=== PATIENT | female | born 1950 | race Caucasian/White ===

== ENCOUNTER → 2019-09-04 | Outpatient (REF) | payer MEDICARE | LOC: M LAB REF 17:46 | PROVIDERS: ATTEND Dermatology | DX: R22.0 Localized swelling, mass and lump, head (principal) | CPT/HCPCS: 87070; 87077; 87186; 87252; G0463 ==

== ENCOUNTER → 2019-09-17 | Outpatient (CLI) | payer MEDICARE ==
[2019-09-17 14:28] LABS: BASO % 0.6 % (0.0-1.0); EOS # 0.1 10^3/uL (0.0-0.5); EOS % 1.3 % (0.0-3.0); HEMATOCRIT 43.6 % (36.0-47.0); HEMOGLOBIN 14.3 g/dl (12.0-15.5); LYMPH # 1.8 10^3/uL (1.5-5.0); MEAN CORPUSCULAR HEMOGLOBIN 30.9 pg (27.0-33.0); MEAN CORPUSCULAR HGB CONC 32.8 g/dl (32.0-36.5); MEAN CORPUSCULAR VOLUME 94.2 fl (80.0-96.0); MONO # 0.5 10^3/uL (0.0-0.8); MONO % 8.7 % (0.0-5.0); NEUTROPHILS # 2.9 10^3/uL (1.5-8.5); PLATELET COUNT, AUTOMATED 335 10^3/uL (150-450); RED BLOOD COUNT 4.63 10^6/uL (4.00-5.40); WHITE BLOOD COUNT 5.3 10^3/uL (4.0-10.0)
[2019-09-17 14:44] LABS: FREE T4 0.95 NG/DL (0.76-1.46); THYROID STIMULATING HORMONE 1.78 uIU/ML (0.358-3.740)
[2019-09-17 15:28] LABS: ERYTHROCYTE SEDIMENTATION RATE 2 mm/hr (0-30)
== END ==
LOC: M WUC 11:27
PROVIDERS: ATTEND Dermatology
DX: R53.83 Other fatigue (principal)

== ENCOUNTER → 2019-09-28 | Outpatient (CLI) | payer MEDICARE ==
[2019-09-28 17:56] LABS: ALBUMIN 4.2 GM/DL (3.2-5.2); ALT/SGPT 26 U/L (12-78); BILIRUBIN,TOTAL 0.4 MG/DL (0.2-1.0); BLOOD UREA NITROGEN 15 MG/DL (7-18); CALCIUM LEVEL 9.2 MG/DL (8.8-10.2); CARBON DIOXIDE LEVEL 27 MEQ/L (21-32); CHLORIDE LEVEL 104 MEQ/L (98-107); COMPLEMENT C4 20 MG/DL (10-40); CREATININE FOR GFR 0.76 MG/DL (0.55-1.30); GLOMERULAR FILTRATION RATE > 60.0 (>45); GLUCOSE, FASTING 86 MG/DL (70-100); POTASSIUM SERUM 3.9 MEQ/L (3.5-5.1); SODIUM LEVEL 139 MEQ/L (136-145); TOTAL PROTEIN 6.7 GM/DL (6.4-8.2)
[2019-10-03 09:08] LABS: ANTINUCLEAR ANTIBODIES DIRECT Negative (Negative); Lyme Disease IgG/IgM Antibodie <0.91 ISR (0.00-0.90); Lyme Disease IgM Ab Quantitati <0.80 index (0.00-0.79)
== END ==
LOC: M WUC 12:04
PROVIDERS: ATTEND Dermatology
DX: L90.5 Scar conditions and fibrosis of skin (principal)

== ENCOUNTER → 2019-11-13 | Outpatient (CLI) | payer MEDICARE ==
--- NOTE | 2019-11-20 17:00 | REP ---
RIGHT ANKLE SERIES: 4-VIEWS HISTORY: Injury in a fall. FINDINGS: Four views of the right ankle demonstrate intact ankle mortise. No fracture or subluxation is seen. Achilles and plantar calcaneal spurring is noted. IMPRESSION: No fracture noted. MTDD
--- NOTE | 2019-11-20 17:02 | REP ---
BILATERAL FOOT SERIES: 8-VIEWS HISTORY: Injury in a fall. Bilateral foot pain. The patient was unable to remove a metallic ring from the second digit of the left foot. FINDINGS: Left foot radiographs demonstrate an intraarticular nondisplaced fracture of the distal aspect of the proximal phalanx of the great toe. There is associated soft tissue swelling. Mild spurring is seen at the MTP joints of the first and second digits of the left foot. There is Achilles and plantar calcaneal spurring on the left. No other left foot fracture is seen. Right foot radiographs show plantar and Achilles calcaneal spurring as well. No right foot fracture is appreciated. IMPRESSION: Left proximal phalangeal fracture great toe at the IP joint. MTDD
== END ==
LOC: M CLY 11:07
PROVIDERS: ATTEND Nurse Practitioner Family
DX: S92.412A Displaced fracture of proximal phalanx of left great toe, initial encounter for closed fracture (principal); S40.019A Contusion of unspecified shoulder, initial encounter; S90.121A Contusion of right lesser toe(s) without damage to nail, initial encounter; W01.0XXA Fall on same level from slipping, tripping and stumbling without subsequent striking against object, initial encounter; Y92.9 Unspecified place or not applicable; M77.31 Calcaneal spur, right foot; M77.32 Calcaneal spur, left foot; Y99.9 Unspecified external cause status; Y93.9 Activity, unspecified
CPT/HCPCS: 73610; 73630; G0463

== ENCOUNTER → 2019-12-02 | Outpatient (REF) | payer MEDICARE ==
[2019-12-03 13:01] LABS: C REACTIVE PROTEIN QUANTITATIV < 0.30 MG/DL (0.00-0.30); IMMUNOGLOBULIN G 665 MG/DL (681-1648); IMMUNOGLOBULIN M 83.2 MG/DL (40-230)
[2019-12-03 14:09] LABS: HIV 1&2 SCREEN CENTAUR NEGATIVE (NEGATIVE)
[2019-12-05 07:11] LABS: HSV TYPE II IgG SPECIFIC 1.12 index (0.00-0.90); IgG SERUM (part of Subclasses) 679 mg/dL (586-1602); IgG Subclass 1 376 mg/dL (248-810); IgG Subclass 2 189 mg/dL (130-555); IgG Subclass 3 23 mg/dL (15-102); IgG Subclass 4 24 mg/dL (2-96)
== END ==
LOC: M LABDRAWC 11:56
PROVIDERS: ATTEND Internal Medicine Infectious Disease
DX: R51 Headache (principal)

== ENCOUNTER → 2019-12-09 | Outpatient (REF) | payer MEDICARE ==
[2019-12-10 13:06] LABS: AMORPHOUS SEDIMENT MODERATE (NEGATIVE); APPEARANCE, URINE TURBID (CLEAR); BACTERIA, URINE AUTO NEGATIVE (NEGATIVE); BILIRUBIN, URINE AUTO NEGATIVE (NEGATIVE); BLOOD, URINE BLOOD NEGATIVE (NEGATIVE); CALCIUM OXALATE CRYSTALS MODERATE; GLUCOSE, URINE (UA) AUTO NEGATIVE (NEGATIVE); KETONE, URINE AUTO NEGATIVE (NEGATIVE); LEUKOCYTE ESTERASE, URINE AUTO NEGATIVE (NEGATIVE); NITRITE, URINE AUTO NEGATIVE (NEGATIVE); PROTEIN, URINE AUTO NEGATIVE (NEGATIVE); RBC, URINE AUTO 2 /HPF (0-3); SPECIFIC GRAVITY URINE AUTO 1.026 (1.002-1.035); SQUAMOUS EPITHELIAL CELL UR AU 0 /HPF (0-6); UROBILINOGEN, URINE AUTO 0.2 mg/dL (0.0-2.0); WBC, URINE AUTO 0 /HPF (0-3)
[2019-12-10 13:08] LABS: COLOR, URINE YELLOW (YELLOW)
== END ==
LOC: M SFHCCLAY 11:17
PROVIDERS: ATTEND Physician Assistant
DX: R10.2 Pelvic and perineal pain (principal)
CPT/HCPCS: 81001; 87070; 87086; G0463

== ENCOUNTER → 2019-12-18 | Outpatient (CLI) | payer MEDICARE ==
--- NOTE | 2019-12-24 13:16 | REP ---
RADIOLOGY NOTE LEFT HIP SERIES HISTORY: Pain. TECHNIQUE: Two views of the left hip are performed. FINDINGS: No acute fracture or dislocation is seen. Mild degenerative changes are noted with mild diffuse joint space narrowing, subchondral sclerosis, and spurring. IMPRESSION: Mild degenerative changes. MTDD
--- NOTE | 2019-12-24 13:17 | REP ---
LUMBOSACRAL SPINE SERIES HISTORY: Low back pain. TECHNIQUE: Five views of the lumbosacral spine performed. FINDINGS: There is no compression fracture. There is normal lumbar lordosis and alignment. There is no spondylolysis o r spondylolisthesis. There is mild diffuse spurring. There is slight disc space narrowing at L1-2 and L2-3. Other disc spaces appear well preserved. There is sclerosis and spurring at the posterior facet joints of L4-5 and L5-S1. The posterior elements are intact. IMPRESSION: Mild degenerative changes as discussed above. MTDD
--- NOTE | 2019-12-24 13:18 | REP ---
LEFT KNEE SERIES HISTORY: Pain. TECHNIQUE: Five views of the left knee are performed. FINDINGS: No acute fracture or dislocation is seen. I do not see a significant joint effusion. There is minimal patellofemoral compartment narrowing laterally with a tiny lateral patellar facet spur. There is a bone island in the lateral femoral condyle. IMPRESSION: Mild degenerative changes of the lateral patellofemoral joint. MTDD
== END ==
LOC: M CLY 10:51
PROVIDERS: ATTEND Physician Assistant
DX: M25.78 Osteophyte, vertebrae (principal); M25.562 Pain in left knee; M25.752 Osteophyte, left hip

== ENCOUNTER → 2020-01-09 | Outpatient (CLI) | payer MEDICARE ==
--- NOTE | 2020-01-09 09:12 | REPVR ---
PROCEDURE INFORMATION: Exam: MR Lumbar Spine Without Contrast. Exam date and time: 01/09/2020 8:42 AM Age: 69 years old Clinical indication: Low back pain; Additional info: Lbp TECHNIQUE: Imaging protocol: Multiplanar magnetic resonance images of the lumbar spine without intravenous contrast. COMPARISON: CR SPINE LS COMPLETE 12/18/2019 11:01 AM FINDINGS: Vertebrae: There is a 1 cm low signal lesion within the L3 vertebra. This is nonspecific. This is not typical for a hemangioma. Spinal cord: Normal signal. No cord compression. L1-L2: No significant disc disease. No significant spinal canal stenosis. No neural foraminal stenosis. L2-L3: There is disc desiccation. There is mild disc bulging. There is a small left foraminal disc herniation. There is moderate left-sided neuroforaminal narrowing. There is facet arthropathy and ligamentum flavum hypertrophy. There is mild spinal canal stenosis. L3-L4: There is disc desiccation. There is mild disc bulging. There is a superimposed left foraminal disc herniation. There is facet arthropathy and ligamentum flavum hypertrophy. There is mild spinal canal stenosis. L4-L5: There is disc desiccation. There is moderate disc bulging. Disc bulging extends into both neural foramen causing mild bilateral neural foraminal narrowing. There is exuberant bilateral facet arthropathy and ligamentum flavum hypertrophy. There is moderate transverse spinal canal stenosis. L5-S1: There is disc desiccation. There is mild disc bulging. Disc bulging extends into both neural foramen causing mild bilateral neural foraminal narrowing. There is a small superimposed right foraminal disc herniation. There is facet arthropathy and ligamentum flavum hypertrophy. There is mild spinal canal stenosis. Soft tissues: Unremarkable. IMPRESSION: 1. Multilevel degenerative changes causing variable degrees of spinal canal and neuroforaminal narrowing as described above. 2. There is a 1 cm low signal lesion within the L3 vertebra. This is nonspecific. This is not typical for a hemangioma. A neoplastic lesion cannot be excluded based on this exam. Please correlate with the presence of any known malignancy. Direct comparison to prior exams is recommended. In the absence of prior studies for comparison purposes, followup MRI in 3 months is recommended. Electronically signed by: Sreekanth St On 01/09/2020 09:12:24 AM
== END ==
LOC: M RAD 07:46
PROVIDERS: ATTEND Internal Medicine Infectious Disease
DX: M51.26 Other intervertebral disc displacement, lumbar region (principal); M51.86 Other intervertebral disc disorders, lumbar region

== ENCOUNTER → 2020-09-12 | Outpatient (CLI) | payer MEDICARE ==
[2020-09-12 11:50] LABS: BASO % 0.5 % (0.0-1.0); EOS # 0.1 10^3/uL (0.0-0.5); EOS % 1.5 % (0.0-3.0); HEMATOCRIT 39.2 % (36.0-47.0); HEMOGLOBIN 12.6 g/dl (12.0-15.5); LYMPH # 1.1 10^3/uL (1.5-5.0); MEAN CORPUSCULAR HGB CONC 32.1 g/dl (32.0-36.5); MEAN CORPUSCULAR VOLUME 96.3 fl (80.0-96.0); MONO # 0.5 10^3/uL (0.0-0.8); MONO % 8.9 % (2.0-8.0); NEUTROPHILS # 4.2 10^3/uL (1.5-8.5); NEUTROPHILS % 70.8 % (36.0-66.0); PLATELET COUNT, AUTOMATED 395 10^3/uL (150-450); RED BLOOD COUNT 4.07 10^6/uL (4.00-5.40); WHITE BLOOD COUNT 5.9 10^3/uL (4.0-10.0)
[2020-09-12 12:30] LABS: ALBUMIN 3.7 GM/DL (3.2-5.2); ALT/SGPT 23 U/L (12-78); BILIRUBIN,TOTAL 0.3 MG/DL (0.2-1.0); BLOOD UREA NITROGEN 10 MG/DL (7-18); CALCIUM LEVEL 9.3 MG/DL (8.8-10.2); CARBON DIOXIDE LEVEL 29 MEQ/L (21-32); CHLORIDE LEVEL 105 MEQ/L (98-107); CREATININE FOR GFR 0.53 MG/DL (0.55-1.30); GLOMERULAR FILTRATION RATE > 60.0 (>45); GLUCOSE, FASTING 76 MG/DL (70-100); POTASSIUM SERUM 3.9 MEQ/L (3.5-5.1); SODIUM LEVEL 134 MEQ/L (136-145); TOTAL PROTEIN 6.9 GM/DL (6.4-8.2)
[2020-09-16 17:09] LABS: Chitobioside Carbohydrat (ACCA 52 units (0-90); Laminaribioside Carbohyd (ALCA 12 units (0-60); Lyme Disease IgG/IgM Antibodie <0.91 ISR (0.00-0.90); Lyme Disease IgM Ab Quantitati <0.80 index (0.00-0.79); Mannobioside Carbohydrat (AMCA 25 units (0-100); Saccharomyces cerevisiae IgG A 2 units (0-50)
== END ==
LOC: M LAB 10:35
PROVIDERS: ATTEND Nurse Practitioner Family
DX: R50.9 Fever, unspecified (principal)

== ENCOUNTER → 2020-10-24 | Outpatient (CLI) | payer SELFPAY | LOC: M LABSMTC 10:16 | PROVIDERS: ATTEND Pediatrics | DX: Z20.822 Contact with and (suspected) exposure to COVID-19 (principal) ==

== ENCOUNTER → 2021-08-24 | Outpatient (REF) | payer MEDICARE ==
[2021-08-24 16:52] LABS: BASO % 0.3 % (0.0-1.0); EOS % 0.7 % (0.0-3.0); HEMOGLOBIN 13.8 g/dl (12.0-15.5); LYMPH # 1.3 10^3/uL (1.5-5.0); LYMPH % 23.1 % (24.0-44.0); MEAN CORPUSCULAR HEMOGLOBIN 32.1 pg (27.0-33.0); MEAN CORPUSCULAR HGB CONC 33.7 g/dl (32.0-36.5); MEAN CORPUSCULAR VOLUME 95.3 fl (80.0-96.0); MONO # 0.4 10^3/uL (0.0-0.8); MONO % 7.1 % (2.0-8.0); NEUTROPHILS % 68.5 % (36.0-66.0); PLATELET COUNT, AUTOMATED 289 10^3/uL (150-450); WHITE BLOOD COUNT 5.8 10^3/uL (4.0-10.0)
[2021-08-24 17:26] LABS: ALBUMIN 4.3 GM/DL (3.2-5.2); ALT/SGPT 24 U/L (12-78); BILIRUBIN,TOTAL 0.6 MG/DL (0.2-1.0); BLOOD UREA NITROGEN 18 MG/DL (7-18); CALCIUM LEVEL 9.4 MG/DL (8.8-10.2); CARBON DIOXIDE LEVEL 28 MEQ/L (21-32); CHLORIDE LEVEL 106 MEQ/L (98-107); CHOLESTEROL LEVEL 193 MG/DL (<200); CHOLESTEROL RISK RATIO 1.873 (<5); CREATININE FOR GFR 0.59 MG/DL (0.55-1.30); FREE T4 1.05 NG/DL (0.76-1.46); GLOMERULAR FILTRATION RATE > 60.0 (>39); GLUCOSE, FASTING 89 MG/DL (70-100); HDL CHOLESTEROL 103 MG/DL (>40); LDL CHOLESTEROL 81 MG/DL (<100); NON-HDL-C 90 MG/DL; POTASSIUM SERUM 4.2 MEQ/L (3.5-5.1); RHEUMATOID FACTOR QUANT < 10.0 IU/ML (<15.0); SODIUM LEVEL 139 MEQ/L (136-145); TOTAL PROTEIN 6.8 GM/DL (6.4-8.2); TRIGLYCERIDES LEVEL 47 MG/DL (<150)
[2021-09-01 00:09] LABS: ANA (HEP2) Negative (.); CHROMIUM, WB <1.0 ng/mL (<3.0); COBALT, WB <1.0 ng/mL (<3.0); CYCLIC CITRULLINATED PEPTIDE 3 units (0-19); SSA SJOGRENS A <0.2 AI (0.0-0.9); SSB SJOGRENS B <0.2 AI (0.0-0.9)
== END ==
LOC: M SFHCCLAY 11:35
PROVIDERS: ATTEND Nurse Practitioner Family
DX: S00.06XA Insect bite (nonvenomous) of scalp, initial encounter (principal); W57.XXXA Bitten or stung by nonvenomous insect and other nonvenomous arthropods, initial encounter; S34.11 Complete lesion of lumbar spinal cord; M54.50 Low back pain, unspecified; Z85.118 Personal history of other malignant neoplasm of bronchus and lung; Z79.899 Other long term (current) drug therapy

== ENCOUNTER → 2021-10-08 | Outpatient (CLI) | payer MEDICARE ==
[2021-10-09 21:07] LABS: IgG P18 AB Absent (.); IgG P23 AB Absent (.); IgG P28 AB Absent (.); IgG P30 AB Absent (.); IgG P39 AB Absent (.); IgG P41 AB Present (.); IgG P45 AB Absent (.); IgG P66 AB Absent (.); IgG P93 AB Absent (.); IgM P23 AB Absent (.); IgM P39 AB Absent (.); IgM P41 AB Absent (.); LYME IgG WB INTERPRETATION Negative (.); LYME IgM WB INTERPRETATION Negative (.)
== END ==
LOC: M WUC 08:06
DX: T63.441D Toxic effect of venom of bees, accidental (unintentional), subsequent encounter (principal)

== ENCOUNTER → 2021-10-13 | Outpatient (CLI) | payer MEDICARE ==
[~2021-10-13] MED LIST: PROHANCE 279.3MG/ML 15ML VIAL ONE
== END ==
LOC: M PLAIMG 09:54
PROVIDERS: ATTEND Nurse Practitioner Family
DX: M48.061 Spinal stenosis, lumbar region without neurogenic claudication (principal); S34.11 Complete lesion of lumbar spinal cord

== ENCOUNTER → 2021-10-13 | Outpatient (CLI) | payer MEDICARE | LOC: M CLY 14:12 | PROVIDERS: ATTEND Nurse Practitioner Family | DX: M12.9 Arthropathy, unspecified (principal); M79.641 Pain in right hand; M79.642 Pain in left hand ==

== ENCOUNTER → 2021-10-13 | Outpatient (REF) | payer MEDICARE ==
[2021-10-13 17:22] LABS: BASO % 0.6 % (0.0-1.0); EOS # 0.1 10^3/uL (0.0-0.5); EOS % 1.2 % (0.0-3.0); HEMATOCRIT 41.7 % (36.0-47.0); HEMOGLOBIN 13.8 g/dl (12.0-15.5); LYMPH # 1.8 10^3/uL (1.5-5.0); MEAN CORPUSCULAR HEMOGLOBIN 31.2 pg (27.0-33.0); MEAN CORPUSCULAR HGB CONC 33.1 g/dl (32.0-36.5); MEAN CORPUSCULAR VOLUME 94.1 fl (80.0-96.0); MONO # 0.5 10^3/uL (0.0-0.8); MONO % 6.9 % (2.0-8.0); NEUTROPHILS # 4.4 10^3/uL (1.5-8.5); NEUTROPHILS % 64.9 % (36.0-66.0); PLATELET COUNT, AUTOMATED 297 10^3/uL (150-450); RED BLOOD COUNT 4.43 10^6/uL (4.00-5.40); WHITE BLOOD COUNT 6.8 10^3/uL (4.0-10.0)
[2021-10-13 17:46] LABS: ERYTHROCYTE SEDIMENTATION RATE 2 mm/hr (0-30)
[2021-10-13 17:54] LABS: ALT/SGPT 42 U/L (12-78); BILIRUBIN,TOTAL 0.7 MG/DL (0.2-1.0); BLOOD UREA NITROGEN 17 MG/DL (7-18); CALCIUM LEVEL 9.2 MG/DL (8.8-10.2); CARBON DIOXIDE LEVEL 31 MEQ/L (21-32); CHLORIDE LEVEL 107 MEQ/L (98-107); CREATININE FOR GFR 0.78 MG/DL (0.55-1.30); GLOMERULAR FILTRATION RATE > 60.0 (>39); GLUCOSE, FASTING 96 MG/DL (70-100); POTASSIUM SERUM 4.2 MEQ/L (3.5-5.1); SODIUM LEVEL 141 MEQ/L (136-145); TOTAL PROTEIN 6.6 GM/DL (6.4-8.2)
== END ==
LOC: M SFHCCLAY 13:34
PROVIDERS: ATTEND Nurse Practitioner Family
DX: S00.06XA Insect bite (nonvenomous) of scalp, initial encounter (principal)

== ENCOUNTER → 2021-11-10 | Outpatient (CLI) | payer MEDICARE | LOC: M RAD 14:37 | PROVIDERS: ATTEND Family Medicine | DX: M53.3 Sacrococcygeal disorders, not elsewhere classified (principal) ==

== ENCOUNTER → 2021-11-17 | Outpatient (CLI) | payer MEDICARE | LOC: M RAD 16:34 | PROVIDERS: ATTEND Orthopaedic Surgery | DX: D25.9 Leiomyoma of uterus, unspecified (principal); M54.50 Low back pain, unspecified; G89.29 Other chronic pain ==

== ENCOUNTER → 2021-12-10 | Outpatient (CLI) | payer MEDICARE ==
[2021-12-10 17:45] LABS: BASO % 0.5 % (0.0-1.0); EOS # 0.1 10^3/uL (0.0-0.5); HEMATOCRIT 43.1 % (36.0-47.0); HEMOGLOBIN 14.5 g/dl (12.0-15.5); LYMPH # 2.2 10^3/uL (1.5-5.0); LYMPH % 34.4 % (24.0-44.0); MEAN CORPUSCULAR HEMOGLOBIN 31.7 pg (27.0-33.0); MEAN CORPUSCULAR HGB CONC 33.6 g/dl (32.0-36.5); MEAN CORPUSCULAR VOLUME 94.3 fl (80.0-96.0); MONO # 0.5 10^3/uL (0.0-0.8); MONO % 8.4 % (2.0-8.0); NEUTROPHILS # 3.5 10^3/uL (1.5-8.5); NEUTROPHILS % 54.4 % (36.0-66.0); PLATELET COUNT, AUTOMATED 338 10^3/uL (150-450); RED BLOOD COUNT 4.57 10^6/uL (4.00-5.40); WHITE BLOOD COUNT 6.4 10^3/uL (4.0-10.0)
[2021-12-10 18:33] LABS: ALBUMIN 4.2 GM/DL (3.2-5.2); ALT/SGPT 28 U/L (12-78); BILIRUBIN,TOTAL 0.5 MG/DL (0.2-1.0); BLOOD UREA NITROGEN 16 MG/DL (7-18); CALCIUM LEVEL 9.3 MG/DL (8.8-10.2); CARBON DIOXIDE LEVEL 28 MEQ/L (21-32); CHLORIDE LEVEL 102 MEQ/L (98-107); GLOMERULAR FILTRATION RATE > 60.0 (>39); GLUCOSE, FASTING 77 MG/DL (70-100); POTASSIUM SERUM 4.1 MEQ/L (3.5-5.1); SODIUM LEVEL 135 MEQ/L (136-145); TOTAL PROTEIN 7.4 GM/DL (6.4-8.2)
== END ==
LOC: M WUC 14:34
PROVIDERS: ATTEND Internal Medicine Hematology & Oncology
DX: D70.9 Neutropenia, unspecified (principal)

== ENCOUNTER → 2023-01-12 | Outpatient (REF) | payer MEDICARE | LOC: M SFHCDERM 11:29 | PROVIDERS: ATTEND Nurse Practitioner Family | DX: Z53.9 Procedure and treatment not carried out, unspecified reason (principal) ==